=== PATIENT | female | born 1940 | race Caucasian/White ===

== ENCOUNTER 2017-07-28 19:24 | Inpatient (IN) | payer OTHER ==
[2017-07-28] MEDS ORDERED: Albuterol/Ipratropium NEB.SOL* Albuterol 2.5 MG/Ipratropium 0.5 MG 3 ML INH ONE (20:02)
[2017-07-28] MEDS ORDERED: Naloxone* 0.4 MG/ML 1 ML VIAL IV PUSH ONE (20:07)
[2017-07-28 20:36] LABS: ABS Basophils 0 10^3/ul (0-0.2); ABS Eosinophils 0 10^3/ul (0-0.6); ABS Lymphocytes 0.6 10^3/ul (1.0-4.8); ABS Monocytes 0.6 10^3/ul (0-0.8); ABS Neutrophils 8.9 10^3/ul (1.5-7.7); ABS Nucleated RBC 0.01 10^3/ul; Eosinophil % 0.1 % (0-6); Hematocrit 33 % (35-47); Hemoglobin 11.1 g/dl (12.0-16.0); Lymphocyte % 5.7 % (25-47); Mean Corpuscular HGB Conc 34 g/dl (31-36); Mean Corpuscular Hemoglobin 29 pg (27-31); Mean Corpuscular Volume 87 fL (80-97); Mean Platelet Volume 7 um3 (7.4-10.4); Nucleated Red Blood Cells % 0.1; Platelet Count 247 10^3/ul (150-450); Red Blood Count 3.81 10^6/ul (4.0-5.4); Red Cell Distribution Width 15 % (10.5-15); White Blood Count 10.1 10^3/ul (3.5-10.8)
[2017-07-28 20:50] LABS: INR 1.21 (0.77-1.02)
--- NOTE | 2017-07-28 20:51 | RAD ---
INDICATION: Shortness of breath and altered mental status COMPARISON: Most recent comparison chest x-ray June 12, 2014 TECHNIQUE: Single AP portable view of the chest was obtained. FINDINGS: Image quality is compromised due to the relative inferiority of a portable chest x-ray. The heart and mediastinum exhibit normal size and contour. There are patchy densities overlying the bilateral lower lungs. The costophrenic angles are blunted. Visualized bones are normal for the patient's age. IMPRESSION: Patchy bibasilar densities could be secondary to pulmonary edema or multifocal infiltrate.
[2017-07-28] MEDS ORDERED: NS 0.9% 1000 ML* 2,000 ML IV ONE (20:54)
[2017-07-28 20:57] LABS: EGFR Non-African American 21.9 (>60)
[2017-07-28 21:01] LABS: Monocytes % 3 % (0-13)
[2017-07-28] MEDS ORDERED: Azithromycin IV(*) 500 MG in NS 0.9% 250 ML* 250 ML IVPB ONE (21:58)
[2017-07-28] MEDS ORDERED: cefTRIAXone(*) 1 GM in NS 0.9% 50 ML* 50 ML IVPB ONE (21:58)
[2017-07-28] MEDS ORDERED: Aspirin TAB* 325 MG PO ONE (21:59)
[2017-07-28] MEDS ORDERED: Aspirin TAB* 325 MG ONE (22:00)
[2017-07-28] MEDS ORDERED: Atorvastatin* 80 MG TAB PO ONE (22:05)
[2017-07-28] MEDS ORDERED: predniSONE TAB* 20 MG PO ONE (22:21)
[2017-07-28] MEDS ORDERED: Albuterol/Ipratropium NEB.SOL* Albuterol 2.5 MG/Ipratropium 0.5 MG 3 ML INH PRN (22:32)
--- NOTE | 2017-07-29 02:28 | HP ---
AMENDED REPORT NOW INCLUDES COSIGNER DESIGNATION - ESIGNED BEFORE ADJUSTMENTS HOSPITAL MEDICINE HISTORY AND PHYSICAL: DATE OF ADMISSION: 07/28/17 PRIMARY CARE PHYSICIAN: Not available. ATTENDING PHYSICIAN PROVIDER: Alberto Chaudhari MD * (dictation provided by Aminata Mccormick NP) CHIEF COMPLAINT: A period of aphasia in the setting of recent worsening cough. HISTORY OF PRESENT ILLNESS: Ms. Wilder is a 76-year-old female with a past medical history of COPD, on 4 L nasal cannula in the evening, who was visiting her family from [place]. She drove here on July 19 with her daughter to spend [place] holidays with the family. She reportedly has been doing fine. She denies having any swelling, redness or pain to her calves after this trip. She noted yesterday that she was having a little bit worse of cough than usual; however, her family notes that her cough is often quite moist , loud, and productive. She felt like she may be was coming down with a cold. For this, she has been taking Tylenol PM. Apparently, per the family she has been breaking the caps in half. It was unclear exactly how much Tylenol PM she had today. This evening, she was getting up to get into the bath tub when suddenly she became aphasic and confused. She was described as "not being herself at all." She was uncommunicative. EMS was called immediately. Family noted that the patient was off oxygen for that short period of time while getting into the bathtub, but per the family's report, the patient is often off oxygen and has actually not been required to wear it at all times per her doctor. On arrival to the EMS, the patient continued to be aphasic, but was following all commands. She remained aphasic through the trip here and into arrival on the emergency room. At the time of my examination, she is awake and interacting appropriately. She is verbal with clear speech which is at baseline per her family's report. In the emergency room, Ms. Wilder had a chest x-ray, which showed concern for bilateral lower lobe infiltrates. She had labs which is concerning for a normal white blood cell, but bandemia with bands of 19%. Her ABG shows the respiratory acidosis, pH 7.31, PCO2 of 68. Her lactic acid is normal. Her BUN and creatinine are elevated, but it is unclear what her baseline is. She is saturating while in her home at 4 L. She is little bit tachycardic with her heart rate running in the 100s. Her blood pressure has been as low as 80/42. PAST MEDICAL HISTORY: 1. COPD, on 4 L nasal cannula. 2. History of colon resection for unknown cause. 3. Breast cancer. 4. History of cholecystectomy. MEDICATIONS: As an outpatient are: 1. Tiotropium 1 cap inhaled daily. 2. Letrozole 2.5 mg p.o. daily. 3. Citalopram 20 mg p.o. daily. 4. Albuterol sulfate 1 to 2 puffs inhaled q.4 hours. 5. Fluticasone with salmeterol 500/50 one puff inhaled daily. 6. Fluticasone nasal spray daily. 7. Daliresp 500 mcg p.o. daily. 8. Pravastatin 20 mg p.o. daily. 9. Oxybutynin 5 mg p.o. daily. 10. Omeprazole 20 mg p.o. daily. 11. Gabapentin 300 mg p.o. t.i.d. ALLERGIES: No known drug allergies. FAMILY HISTORY: The patient reports her mother and father of old age. SOCIAL HISTORY: The patient quit smoking about 10 years ago. No reported alcohol or drug use. She is currently staying with her daughter who is the healthcare proxy. REVIEW OF SYSTEMS: A 14-point review of systems was completed with Ms. Wilder and all those not mentioned above were negative. PHYSICAL EXAMINATION GENERAL: Ms. Wilder is sitting in the bed with the family at the bedside. VITALS SIGNS: Temperature 98.6, pulse rate 102, respiratory rate 20, O2 saturation 90% on 4 L nasal cannula. Blood pressure on arrival was 80/42. LUNGS: Diminished in the bases, but clear otherwise. There is no wheezing appreciated today. HEART: S1 and S2. No murmur, rub, or gallop and regular. ABDOMEN: Soft, nontender. Bowel sounds positive x4. EXTREMITIES: No cyanosis or edema. NEURO: She is alert. She is oriented x3. She moves all extremity equally. There is no facial asymmetry or focal weakness. Extraocular movements are intact. The patient has no pronator drift. Sensation is intact. No ataxia in upper or lower extremities. SKIN: Intact. LABORATORY DATA/DIAGNOSTIC STUDIES: Sodium 133, potassium is clumping, and that results are not available. Chloride 95, serum bicarbonate 30. BUN 30, creatinine 2.19, glucose 90, lactic acid 1.8. Troponin is 0.02. WBC 10.1, hemoglobin 11.1, hematocrit 33, and platelet count 247. INR 1.21. Chest x-ray shows "patchy bibasilar densities could be secondary to pulmonary edema or multifocal infiltrate." ASSESSMENT AND PLAN: Ms. Wilder is a 76-year-old female with a past medical history of chronic obstructive pulmonary disease, on 4 L of nasal cannula who is visiting her family from [place]. Yesterday, she began experiencing worsening cough and today she has been taking Tylenol PM with concerns perhaps that she took more than the recommended dose. Today, she was getting up to go to be assisted with the bath by her family when she suddenly became aphasic. The family stated that she was able to follow commands, but unable to speak. Our plans will be for inpatient admission as I expect her length of stay to be greater the 2 days for the followin. Aphasia: Initial concern was that perhaps the patient was hypoxic; however , though she was hypoxic she is often on room air at home. There is also concern that perhaps she had a Benadryl overdose with the excess of Tylenol PM; however, she is alert and oriented now and speaking easily. I do not think that Benadryl overdose will cause a sudden onset of her aphasia that resolved so quickly. Perhaps she was confused because of her acute illness but my concern would be for transient ischemic attack. The patient's CT brain has been ordered. I also plan to continue the stroke workup with MRI brain, telemetry, transthoracic echocardiogram, lipid profile. The patient will also have aspirin now and atorvastatin. 2. Pneumonia. The patient has a worsening cough at home. She presents today after a spell of aphasia with bands of 19%. White count is normal and she is afebrile. The chest x-ray shows concern for infiltrate. Plan to continue treatment with ceftriaxone and azithromycin. She will have oxygen available and titrated as needed. She will have duo nebulizers p.r.n. Though she is not evidencing wheezing tonight in the emergency department, I am concerned this patient with advanced chronic obstructive pulmonary disease will develop chronic obstructive pulmonary disease exacerbation with this pneumonia and therefore I plan to treat with prednisone as well. The patient will also continue on her inhalers. 3. Elevated BUN and creatinine. Patient confirms an elevated BUN and creatinine, but I do not know her baseline. I suspect that she is somewhat dry , plan to treat with IV fluids and recheck all her labs in the morning. 4. Anemia, again unclear baseline. I plan to recheck all her labs in the morning. There is no reported dark tarry stools or any other bleeding. 5. DVT prophylaxis with heparin subcu. 6. Code status is DNR/DNI and a MOLST form will be completed. 7. Gastroesophageal reflux disease, continue omeprazole. 8. Depression, plan to hold citalopram while using azithromycin for her pneumonia. TIME SPENT: Approximately 75 minutes were spent in the admission of this patient, more than half the time spent with the patient at the bedside reviewing the events leading up to this hospitalization, performing physical examination and reviewing my plan of care. AMINATA MCCORMICK, GUS [id number]/[facility] #: [id number] ROSALINA
[2017-07-29] MEDS: NS 0.9% 1000 ML* 1,000 ML IV SCH ×2 (02:41→05:08)
[2017-07-29] MEDS ORDERED: NS 0.9% 1000 ML* 1,000 ML IV ONE ×2 (03:49→05:43)
[2017-07-29] MEDS: Heparin VIAL(*) 5000 UNITS/ML VIAL (FIVE THOUSAND) SUBCUT SCH ×3 (05:14→21:05)
[2017-07-29] MEDS: Mometasone/Formoter 200/5 MDI INH SCH ×2 (07:31→19:38)
[2017-07-29] MEDS: Oxybutynin TAB* 5 MG PO SCH (09:16)
[2017-07-29] MEDS: predniSONE TAB* 20 MG PO SCH (09:16)
[2017-07-29] MEDS: Gabapentin CAP(*) 100 MG PO SCH ×3 (09:16→21:04)
[2017-07-29] MEDS: Omeprazole CAP* 20 MG PO SCH (09:16)
[2017-07-29] MEDS: ROFLUMILAST 500 MCG PO SCH (09:18)
--- NOTE | 2017-07-29 09:19 | RAD ---
INDICATION: Aphasia. Relevant surgical history includes surgery to the mastoid bones. COMPARISON: None. TECHNIQUE: Contiguous axial sections of the brain were obtained from the skull base to the vertex without contrast. FINDINGS: The ventricles, cisterns and sulci are within normal limits. There is mild periventricular and subcortical white matter hypoattenuation most consistent with mild microvascular disease. The conway-white matter differentiation is adequately maintained and there is no sulcal effacement. No significant focal abnormality or mass effect is present. There is no evidence for intracranial hemorrhage. No significant focal osseous abnormality is present. The visualized portion of the paranasal sinuses appear clear. There is evidence of right mastoidectomy. The remaining right mastoid air cells exhibit partial effusion. The left mastoid air cells are well-aerated. IMPRESSION: Chronic appearing and postsurgical changes as described above.
--- NOTE | 2017-07-29 09:25 | PN ---
Subjective Date of Service: 07/29/17 Interval History: Patient seen and examined at bedside. Denies fever, chills, chest discomfort, N/ V/D. Pt reports continues cough and increased shortness of breath. Pt states that at home she is able to ambulate without O2 and shortness of breath. Pt states that she plans on staying in [place] until September and then she will return to [place]. She doesn't have a PCP here in [place]. Tele: Sinus tach, rate 110's. Pt tachy up to 130's with ambulation. Family History: Unchanged from Admission Social History: Unchanged from Admission Past Medical History: Unchanged from Admission Objective Active Medications: Albuterol/Ipratropium (Duoneb (Albuterol 2.5 Mg/Ipratropium 0.5 Mg)) 1 neb INH Q4H PRN Reason: SOB/WHEEZING Atorvastatin Calcium (Lipitor*) 80 mg PO 1700 [facility] Gabapentin (Neurontin Cap(*)) 300 mg PO TID [facility] Heparin Sodium (Porcine) (Heparin Vial(*)) 5,000 units SUBCUT Q8HR [facility] Ceftriaxone Sodium 500 mg/ (Sodium Chloride) 50 mls @ 200 mls/hr IVPB Q24H [facility] Azithromycin 250 mg/ Sodium (Chloride) 250 mls @ 250 mls/hr IVPB Q24H [facility] Sodium Chloride (Ns 0.9% 1000 Ml*) 1,000 mls @ 75 mls/hr IV PER RATE [facility] Mometasone Furoate/Formoterol Fumar (Dulera 200/5 Mdi*) 2 puff INH BID [facility] Omeprazole (Prilosec Cap*) 20 mg PO DAILY@0730 [facility] Oxybutynin Chloride (Ditropan Tab*) 5 mg PO DAILY [facility] Prednisone (Deltasone Tab*) 40 mg PO DAILY [facility] Roflumilast (Daliresp (Nf)) 500 mcg PO DAILY [facility] Vital Signs - 8 hr 07/29/17 07/29/17 07/29/17 03:37 03:48 09:16 Temperature 98.1 F Pulse Rate 111 Respiratory 22 20 Rate Blood Pressure 81/40 92/56 (mmHg) O2 Sat by Pulse 90 Oximetry Oxygen Devices in Use Now: Nasal Cannula - 6L Appearance: NAD, sitting up in chair Ears/Nose/Mouth/Throat: Mucous Membranes Moist Respiratory: Symmetrical Chest Expansion and Respiratory Effort, - - Lung sounds with crackles in the bases and wheezing bilateral Cardiovascular: NL Sounds; No Murmurs; No JVD, RRR - , tachy Abdominal: NL Sounds; No Tenderness; No Distention Extremities: No Edema Skin: No Rash or Ulcers Neurological: Alert and Oriented x 3, NL Muscle Strength and Tone Lines/Tubes/Other Access: Clean, Dry and Intact Peripheral IV - site benign Nutrition: Taking PO's Result Diagrams: 07/29/17 09:01 07/29/17 09:01 Assess/Plan/Problems-Billing Assessment: Ms. Wilder is a 76 yo female with PMH significant for COPD on 4L O2 at baseline and breast CA who presented to the emergency room with complaints of aphasia and cough. - Patient Problems (1) Aphasia Code(s): R47.01 - APHASIA SNOMED Code(s): 14262759 Comment: - Unclear cause at this time, r/o TIA - Brain CT - read pending - MRI and TTE pending - Continue statin and started on ASA (2) PNA (pneumonia) Code(s): J18.9 - PNEUMONIA, UNSPECIFIED ORGANISM SNOMED Code(s): 677481367 Comment: - Mild leukocytosis this AM and afebrile - Chest xray with concer for infiltrate - Bands 19% on admission - Continue ceftriaxone and azithromycin (3) COPD (chronic obstructive pulmonary disease) Code(s): J44.9 - CHRONIC OBSTRUCTIVE PULMONARY DISEASE, UNSPECIFIED SNOMED Code(s): 42117253 Comment: - With mild exacerbation secondary to PNA - Wheezing on exam - Continue Azithromycin, prednisone and inhalers/nebs (4) Chronic respiratory failure with hypoxia Comment: - Acute on chronic, on 6L via NC at this time - On 4 L via NC at home at baseline (5) CKD (chronic kidney disease) Code(s): N18.9 - CHRONIC KIDNEY DISEASE, UNSPECIFIED SNOMED Code(s): 834624407 Comment: - Per Pt she has elevated BUN and creatinine at baseline - Unclear baseline - Will attempt to get baseline labs from PCP on Sunday (6) Anemia Code(s): D64.9 - ANEMIA, UNSPECIFIED SNOMED Code(s): 734183999 Comment: - Per Pt anemia at baseline - Unclear baseline - Denies signs of bleeding or dark tarry stools (7) GERD (gastroesophageal reflux disease) Code(s): K21.9 - GASTRO-ESOPHAGEAL REFLUX DISEASE WITHOUT ESOPHAGITIS SNOMED Code(s): 110135565 Comment: - Continue omperazole (8) Depression Code(s): F32.9 - MAJOR DEPRESSIVE DISORDER, SINGLE EPISODE, UNSPECIFIED SNOMED Code(s): 55384536 Comment: - Hold citalopram while receiving azithromycin (9) DVT prophylaxis Code(s): CIV7866 - SNOMED Code(s): 600933178 Comment: - SQ heparin (10) DNR (do not resuscitate) Status and Disposition: Inpatient. Discharge to home when medically stable.
[2017-07-29 09:27] LABS: ABS Basophils 0 10^3/ul (0-0.2); ABS Eosinophils 0 10^3/ul (0-0.6); ABS Lymphocytes 0.3 10^3/ul (1.0-4.8); ABS Monocytes 0.5 10^3/ul (0-0.8); ABS Neutrophils 10.9 10^3/ul (1.5-7.7); ABS Nucleated RBC 0.02 10^3/ul; Eosinophil % 0.1 % (0-6); Hematocrit 33 % (35-47); Hemoglobin 10.4 g/dl (12.0-16.0); Lymphocyte % 2.6 % (25-47); Mean Corpuscular HGB Conc 32 g/dl (31-36); Mean Corpuscular Hemoglobin 29 pg (27-31); Mean Corpuscular Volume 90 fL (80-97); Nucleated Red Blood Cells % 0.2; Red Blood Count 3.65 10^6/ul (4.0-5.4); Red Cell Distribution Width 16 % (10.5-15); White Blood Count 11.7 10^3/ul (3.5-10.8)
[2017-07-29] MEDS ORDERED: Furosemide IV* 10 MG/ML 2 ML VIAL (20 MG) IV ONE (09:31)
[2017-07-29] MEDS: guaiFENesin ER TAB 600 MG PO SCH ×2 (10:45→21:05)
[2017-07-29] MEDS: Atorvastatin* 80 MG TAB PO SCH (17:40)
[2017-07-29] MEDS: cefTRIAXone VIAL(*) 500 MG in NS 0.9% 50 ML* 50 ML IVPB SCH (21:03)
[2017-07-29] MEDS: Azithromycin IV(*) 250 MG in NS 0.9% 250 ML* 250 ML IVPB SCH (22:35)
[2017-07-30 02:17] LABS: Urine Appearance Clear; Urine Blood 2+ (Negative); Urine Color Yellow; Urine Ketones Negative (Negative); Urine Protein Negative (Negative); Urine Specific Gravity 1.009 (1.010-1.030); Urine Urobilinogen Negative (Negative)
[2017-07-30 05:36] LABS: ABS Basophils 0 10^3/ul (0-0.2); ABS Eosinophils 0 10^3/ul (0-0.6); ABS Lymphocytes 0.5 10^3/ul (1.0-4.8); ABS Monocytes 0.8 10^3/ul (0-0.8); ABS Neutrophils 10.3 10^3/ul (1.5-7.7); ABS Nucleated RBC 0.01 10^3/ul; Eosinophil % 0 % (0-6); Hematocrit 30 % (35-47); Hemoglobin 9.7 g/dl (12.0-16.0); Lymphocyte % 4.2 % (25-47); Mean Corpuscular HGB Conc 33 g/dl (31-36); Mean Corpuscular Hemoglobin 29 pg (27-31); Mean Corpuscular Volume 88 fL (80-97); Mean Platelet Volume 7 um3 (7.4-10.4); Nucleated Red Blood Cells % 0.1; Platelet Count 251 10^3/ul (150-450); Red Blood Count 3.36 10^6/ul (4.0-5.4); Red Cell Distribution Width 15 % (10.5-15); White Blood Count 11.6 10^3/ul (3.5-10.8)
[2017-07-30] MEDS: Heparin VIAL(*) 5000 UNITS/ML VIAL (FIVE THOUSAND) SUBCUT SCH ×3 (05:48→21:33)
[2017-07-30 05:49] LABS: EGFR Non-African American 23.9 (>60)
[2017-07-30] MEDS: Mometasone/Formoter 200/5 MDI INH SCH ×2 (07:42→21:10)
[2017-07-30] MEDS: Gabapentin CAP(*) 300 MG PO SCH ×3 (08:32→21:32)
[2017-07-30] MEDS: predniSONE TAB* 20 MG PO SCH (08:32)
[2017-07-30] MEDS: guaiFENesin ER TAB 600 MG PO SCH ×2 (08:32→21:33)
[2017-07-30] MEDS: Oxybutynin TAB* 5 MG PO SCH (08:32)
[2017-07-30] MEDS: Omeprazole CAP* 20 MG PO SCH (08:32)
--- NOTE | 2017-07-30 11:30 | ECHO ---
Patient: LASHONDA HOLLIDAY Rec#: [id number] : 1940 Date: 07/30/2017 Age: 76y Height: 160.02 cm / 63.0 in Weight: 74.84 kg / 164.9 lbs Sex: F BSA: 1.78 Room#: 433 Admit Date#: 07/28/2017 Type: Inpatient Referring: Aminata Lock NP Reading: Marie Brown MD Eviscerator: Rebekah Patterson [facility] Transthoracic Echocardiogram Indication: TIA BP: 107/46 HR: 104 Rhythm: Tachycardia Findings History: COPD,colon cancer,breast cancer,sudden asphasia and confusion. Technical Comments: The study quality is good. Completed at 0950. Left Ventricle: The left ventricular chamber size is mildly dilated. Global left ventricular wall motion and contractility are within normal limits. There is normal left ventricular systolic function. The estimated ejection fraction is 55-60%. Abnormal left ventricular diastolic function is observed.Grade II. The left ventricular diastolic filling pattern is consistent with elevated mean left atrial pressure. Left Atrium: The left atrium is mildly dilated. Right Ventricle: The right ventricle is mildly dilated. The right ventricular global systolic function is normal. Right Atrium: The right atrium is mildly dilated. The interatrial septum appears lipomatous. No atrial septal defect is demonstrated by color Doppler. Aortic Valve: The aortic valve is trileaflet. There is no evidence of aortic regurgitation. There is no evidence of aortic stenosis. Mitral Valve: The mitral valve leaflets are mildly thickened. There is mild mitral regurgitation. The mitral regurgitant jet is medially directed. The mitral regurgitant jet is eccentric. There is no evidence of mitral stenosis. Tricuspid Valve: The tricuspid valve leaflets are normal. There is mild tricuspid regurgitation.possible mild-moderate based on subcostal views. The tricuspid regurgitant jet is wall impinging. There is evidence of mild pulmonary hypertension. There is no tricuspid stenosis. Pulmonic Valve: The pulmonic valve appears normal. There is no evidence of pulmonic regurgitation. There is no pulmonic stenosis. Pericardium: A pericardial fat pad is visualized. Aorta: There is mild dilatation of the ascending aorta. The aortic arch is not well visualized. There is no dilation of the aortic root. Pulmonary Artery: The main pulmonary artery appears normal. Venous: The inferior vena cava appears normal in size. There is a greater than 50% respiratory change in the inferior vena cava dimension. Conclusions The left ventricular chamber size is mildly dilated. Global left ventricular wall motion and contractility are within normal limits. The estimated ejection fraction is 55-60%. Abnormal left ventricular diastolic function is observed, grade II. Elevated mean left atrial pressure. The right ventricle is mildly dilated with normal systolic function. Mild bi atrial enlargement. There is mild mitral regurgitation. There is mild tricuspid regurgitation, possible mild-moderate based on subcostal views. There is evidence of mild pulmonary hypertension: 42 mmHg. The interatrial septum appears lipomatous. No atrial septal defect is demonstrated by color Doppler. Mild dilatation of the ascending aorta: 3.8 cm. No prior echo to compare. Consider saline contrast or PATRICIA if clinically indicated to follow up on etiology of neurological symptoms. Measurements Name Value Normal Range RVIDd (AP) 2D 2.7 cm (0.9 - 2.6) RVDdMajor (2D) 2.7 cm (2.2 - 4.4) RAd ISD 4CH 5.4 cm (3.4 - 4.9) RA (A4C)W 3.4 cm (2.9 - 4.6) IVSd (2D) 1 cm (0.6 - 1) LVPWd (2D) 0.9 cm (0.6 - 1) LVIDd (2D) 5.5 cm (3.6 - 5.4) LVIDs (2D) 4.3 cm - LV FS (2D) 21 % (25 - 45) Aortic Annulus 1.5 cm (1.4 - 2.6) Ao root diameter (2D) 2.9 cm (2.1 - 3.5) Ascending Ao 3.8 cm (2.1 - 3.4) LA dimension (AP) 2D 4.1 cm (2.3 - 3.8) LAd ISD 4CH 5.9 cm (2.9 - 5.3) LA ISD 4CH W 3.8 cm (2.5 - 4.5) Name Value Normal Range LA ESV SP 4CH (A/L) 52 ml - LA ESV SP 2CH (A/L) 58 ml - LA ESV BP (A/L) 57 ml - LA ESV BP (A/L) index 32.26 ml/m2 - LA ESV SP 4CH (MOD) 48 ml - LA ESV SP 2CH (MOD) 55 ml - Name Value Normal Range MV E-wave Vmax 1.2 m/sec - MV deceleration time 219 msec - MV A-wave Vmax 1.4 m/sec - MV E:A ratio 0.89 ratio - LV septal e' Vmax 0.06 m/sec - LV lateral e' Vmax 0.07 m/sec - LV E:e' septal ratio 20 ratio - LV E:e' lateral ratio 17.14 ratio - Name Value Normal Range AV Vmax 1.8 m/sec - AV VTI 30.3 cm - AV peak gradient 13.43 mmHg - AV mean gradient 5.67 mmHg - LVOT Vmax 1.3 m/sec - LVOT VTI 24 cm - LVOT peak gradient 7.1 mmHg - LVOT mean gradient 3.69 mmHg - Name Value Normal Range TR Vmax 3.1 m/sec - TR peak gradient 39 mmHg - RAP 3 mmHg - RVSP 42 mmHg - IVC diameter 2 cm - Name Value Normal Range PV Vmax 1.2 m/sec - PV peak gradient 5.78 mmHg -
--- NOTE | 2017-07-30 12:52 | PN ---
Subjective Date of Service: 07/30/17 Interval History: Patient seen and examined at bedside. Denies fever/chills, CP, N/V/D. She still reports some feelings of weakness that comes and goes; endorses cough, pleuritic pain with inspiration and dyspnea w/ exertion. Family History: Unchanged from Admission Social History: Unchanged from Admission Past Medical History: Unchanged from Admission Objective Active Medications: Albuterol/Ipratropium (Duoneb (Albuterol 2.5 Mg/Ipratropium 0.5 Mg)) 1 neb INH Q4H PRN PRN Reason: SOB/WHEEZING Last Admin: 07/29/17 07:41 Dose: 1 neb Atorvastatin Calcium (Lipitor*) 80 mg PO 1700 [facility] Last Admin: 07/29/17 17:40 Dose: 80 mg Gabapentin (Neurontin Cap(*)) 300 mg PO TID [facility] Last Admin: 07/30/17 08:32 Dose: 300 mg Guaifenesin (Mucinex*) 600 mg PO BID [facility] Last Admin: 07/30/17 08:32 Dose: 600 mg Heparin Sodium (Porcine) (Heparin Vial(*)) 5,000 units SUBCUT Q8HR [facility] Last Admin: 07/30/17 05:48 Dose: 5,000 units Ceftriaxone Sodium 500 mg/ (Sodium Chloride) 50 mls @ 200 mls/hr IVPB Q24H [facility] Last Admin: 07/29/17 21:03 Dose: 200 mls/hr Azithromycin 250 mg/ Sodium (Chloride) 250 mls @ 250 mls/hr IVPB Q24H [facility] Last Admin: 07/29/17 22:35 Dose: 250 mls/hr Mometasone Furoate/Formoterol Fumar (Dulera 200/5 Mdi*) 2 puff INH BID [facility] Last Admin: 07/30/17 07:42 Dose: 2 puff Omeprazole (Prilosec Cap*) 20 mg PO DAILY@0730 [facility] Last Admin: 07/30/17 08:32 Dose: 20 mg Oxybutynin Chloride (Ditropan Tab*) 5 mg PO DAILY [facility] Last Admin: 07/30/17 08:32 Dose: 5 mg Prednisone (Deltasone Tab*) 40 mg PO DAILY [facility] Last Admin: 07/30/17 08:32 Dose: 40 mg Roflumilast (Daliresp (Nf)) 500 mcg PO DAILY [facility] Last Admin: 07/29/17 09:18 Dose: Not Given Vital Signs - 8 hr 07/30/17 07/30/17 07/30/17 07:47 07:49 08:32 Temperature 97.3 F Pulse Rate 100 Respiratory 20 18 21 Rate Blood Pressure 140/52 (mmHg) O2 Sat by Pulse 93 93 Oximetry 07/30/17 07/30/17 10:59 11:36 Temperature 98.5 F Pulse Rate 97 Respiratory 20 16 Rate Blood Pressure 124/54 (mmHg) O2 Sat by Pulse 93 Oximetry Oxygen Devices in Use Now: None Appearance: Older female, sitting up, in NAD Eyes: No Scleral Icterus Ears/Nose/Mouth/Throat: Clear Oropharnyx, Mucous Membranes Moist Neck: NL Appearance and Movements; NL JVP Respiratory: Symmetrical Chest Expansion and Respiratory Effort, - - expiratory wheezes Cardiovascular: NL Sounds; No Murmurs; No JVD, RRR Extremities: No Edema Skin: No Rash or Ulcers Neurological: Alert and Oriented x 3, NL Muscle Strength and Tone Lines/Tubes/Other Access: Clean, Dry and Intact Peripheral IV Nutrition: Taking PO's Result Diagrams: 07/30/17 05:08 07/30/17 05:08 Assess/Plan/Problems-Billing Assessment: Ms. Wilder is a 76 yo female with PMH significant for COPD on 4L O2 at baseline and breast CA who presented to the emergency room with complaints of aphasia and cough. - Patient Problems (1) Aphasia Code(s): R47.01 - APHASIA Comment: - Unclear cause at this time, r/o TIA - Brain CT - read pending - MRI and TTE pending - Continue statin and started on ASA (2) PNA (pneumonia) Code(s): J18.9 - PNEUMONIA, UNSPECIFIED ORGANISM Comment: - Mild leukocytosis this AM and afebrile - Chest xray with concern for infiltrate - Bands 19% on admission - Continue ceftriaxone and azithromycin (3) COPD (chronic obstructive pulmonary disease) Code(s): J44.9 - CHRONIC OBSTRUCTIVE PULMONARY DISEASE, UNSPECIFIED Comment: - With mild exacerbation secondary to PNA - Wheezing on exam - Continue Azithromycin, prednisone and inhalers/nebs (4) Chronic respiratory failure with hypoxia Comment: - Acute on chronic, on 6L via NC at this time - On 4 L via NC at home at baseline (5) CKD (chronic kidney disease) Code(s): N18.9 - CHRONIC KIDNEY DISEASE, UNSPECIFIED Comment: - Per Pt she has elevated BUN and creatinine at baseline - Unclear baseline - Will attempt to get baseline labs from PCP on Sunday (6) Anemia Code(s): D64.9 - ANEMIA, UNSPECIFIED Comment: - Per Pt anemia at baseline - Unclear baseline - Denies signs of bleeding or dark tarry stools - Check stool occult (7) GERD (gastroesophageal reflux disease) Code(s): K21.9 - GASTRO-ESOPHAGEAL REFLUX DISEASE WITHOUT ESOPHAGITIS Comment : - Continue omperazole (8) Depression Code(s): F32.9 - MAJOR DEPRESSIVE DISORDER, SINGLE EPISODE, UNSPECIFIED Comment: - Hold citalopram while receiving azithromycin (9) DVT prophylaxis Comment: - SQ heparin (10) DNR (do not resuscitate) Status and Disposition: Inpatient. Discharge to home when medically stable.
[2017-07-30] MEDS: ROFLUMILAST 500 MCG PO SCH ×2 (12:58→16:09)
[2017-07-30] MEDS: Atorvastatin* 80 MG TAB PO SCH (16:09)
[2017-07-30] MEDS: cefTRIAXone VIAL(*) 500 MG in NS 0.9% 50 ML* 50 ML IVPB SCH (21:29)
[2017-07-30] MEDS: Azithromycin IV(*) 250 MG in NS 0.9% 250 ML* 250 ML IVPB SCH (22:12)
[2017-07-31] MEDS: Heparin VIAL(*) 5000 UNITS/ML VIAL (FIVE THOUSAND) SUBCUT SCH ×2 (05:22→13:36)
[2017-07-31 05:57] LABS: ABS Basophils 0 10^3/ul (0-0.2); ABS Eosinophils 0 10^3/ul (0-0.6); ABS Lymphocytes 0.6 10^3/ul (1.0-4.8); ABS Monocytes 0.6 10^3/ul (0-0.8); ABS Neutrophils 9.9 10^3/ul (1.5-7.7); ABS Nucleated RBC 0.02 10^3/ul; Eosinophil % 0 % (0-6); Hematocrit 29 % (35-47); Hemoglobin 9.4 g/dl (12.0-16.0); Lymphocyte % 5.6 % (25-47); Mean Corpuscular HGB Conc 32 g/dl (31-36); Mean Corpuscular Hemoglobin 28 pg (27-31); Mean Corpuscular Volume 88 fL (80-97); Mean Platelet Volume 7 um3 (7.4-10.4); Nucleated Red Blood Cells % 0.2; Platelet Count 261 10^3/ul (150-450); Red Blood Count 3.31 10^6/ul (4.0-5.4); Red Cell Distribution Width 15 % (10.5-15); White Blood Count 11.1 10^3/ul (3.5-10.8)
[2017-07-31] MEDS: guaiFENesin ER TAB 600 MG PO SCH (08:32)
[2017-07-31] MEDS: Oxybutynin TAB* 5 MG PO SCH (08:32)
[2017-07-31] MEDS: predniSONE TAB* 20 MG PO SCH (08:32)
[2017-07-31] MEDS: ROFLUMILAST 500 MCG PO SCH (08:32)
[2017-07-31] MEDS: Omeprazole CAP* 20 MG PO SCH (08:32)
[2017-07-31] MEDS: Gabapentin CAP(*) 300 MG PO SCH ×2 (08:33→13:36)
[2017-07-31] MEDS ORDERED: Ferrous Sulfate TAB* 325 MG PO SCH (09:00)
--- NOTE | 2017-07-31 10:18 | PN ---
Subjective Date of Service: 07/31/17 Family History: Unchanged from Admission Social History: Unchanged from Admission Past Medical History: Unchanged from Admission Objective Active Medications: Albuterol/Ipratropium (Duoneb (Albuterol 2.5 Mg/Ipratropium 0.5 Mg)) 1 neb INH Q4H PRN PRN Reason: SOB/WHEEZING Last Admin: 07/29/17 07:41 Dose: 1 neb Atorvastatin Calcium (Lipitor*) 80 mg PO 1700 [facility] Last Admin: 07/30/17 16:09 Dose: 80 mg Cyanocobalamin (Vitamin B12 Inj *) 1,000 mcg IM MONTHLY [facility] Ferrous Sulfate (Ferrous Sulfate Tab*) 325 mg PO DAILY [facility] Last Admin: 07/31/17 08:32 Dose: 325 mg Gabapentin (Neurontin Cap(*)) 300 mg PO TID [facility] Last Admin: 07/31/17 08:33 Dose: 300 mg Guaifenesin (Mucinex*) 600 mg PO BID [facility] Last Admin: 07/31/17 08:32 Dose: 600 mg Heparin Sodium (Porcine) (Heparin Vial(*)) 5,000 units SUBCUT Q8HR [facility] Last Admin: 07/31/17 05:22 Dose: 5,000 units Ceftriaxone Sodium 500 mg/ (Sodium Chloride) 50 mls @ 200 mls/hr IVPB Q24H [facility] Last Admin: 07/30/17 21:29 Dose: 200 mls/hr Azithromycin 250 mg/ Sodium (Chloride) 250 mls @ 250 mls/hr IVPB Q24H [facility] Last Admin: 07/30/17 22:12 Dose: 250 mls/hr Mometasone Furoate/Formoterol Fumar (Dulera 200/5 Mdi*) 2 puff INH BID [facility] Last Admin: 07/30/17 21:10 Dose: 2 puff Omeprazole (Prilosec Cap*) 20 mg PO DAILY@0730 [facility] Last Admin: 07/31/17 08:32 Dose: 20 mg Oxybutynin Chloride (Ditropan Tab*) 5 mg PO DAILY [facility] Last Admin: 07/31/17 08:32 Dose: 5 mg Prednisone (Deltasone Tab*) 40 mg PO DAILY [facility] Last Admin: 07/31/17 08:32 Dose: 40 mg Roflumilast (Daliresp (Nf)) 500 mcg PO DAILY [facility] Last Admin: 07/31/17 08:32 Dose: 500 mcg Vital Signs - 8 hr 07/31/17 07/31/17 07/31/17 03:48 07:40 07:54 Temperature 98.7 F 98.3 F Pulse Rate 92 75 Respiratory 16 20 20 Rate Blood Pressure 142/55 130/55 (mmHg) O2 Sat by Pulse 94 94 Oximetry 07/31/17 07/31/17 07/31/17 08:33 08:49 08:50 Temperature Pulse Rate 96 Respiratory 20 16 Rate Blood Pressure (mmHg) O2 Sat by Pulse 94 96 Oximetry Oxygen Devices in Use Now: Nasal Cannula Result Diagrams: 07/31/17 05:04 07/30/17 05:08 Microbiology and Other Data: Microbiology 07/30/17 19:12 Stool Occult Blood (FATIMAH) - Final Stool Assess/Plan/Problems-Billing Assessment: Ms. Wilder is a 76 yo female with PMH significant for COPD on 4L O2 at baseline and breast CA who presented to the emergency room with complaints of aphasia and cough. - Patient Problems (1) Aphasia Code(s): R47.01 - APHASIA Comment: - Unclear cause at this time, r/o TIA - Brain CT - read pending - MRI and TTE pending - Continue statin and started on ASA (2) PNA (pneumonia) Code(s): J18.9 - PNEUMONIA, UNSPECIFIED ORGANISM Comment: - Mild leukocytosis this AM and afebrile - Chest xray with concern for infiltrate - Bands 19% on admission - Continue ceftriaxone and azithromycin (3) COPD (chronic obstructive pulmonary disease) Code(s): J44.9 - CHRONIC OBSTRUCTIVE PULMONARY DISEASE, UNSPECIFIED Comment: - With mild exacerbation secondary to PNA - Wheezing on exam - Continue Azithromycin, prednisone and inhalers/nebs (4) Chronic respiratory failure with hypoxia Comment: - Acute on chronic, on 6L via NC at this time - On 4 L via NC at home at baseline (5) CKD (chronic kidney disease) Code(s): N18.9 - CHRONIC KIDNEY DISEASE, UNSPECIFIED Comment: - Per Pt she has elevated BUN and creatinine at baseline - Unclear baseline - Will attempt to get baseline labs from PCP on Sunday (6) Anemia Code(s): D64.9 - ANEMIA, UNSPECIFIED Comment: - Per Pt anemia at baseline - Unclear baseline - Denies signs of bleeding or dark tarry stools - Check stool occult (7) GERD (gastroesophageal reflux disease) Code(s): K21.9 - GASTRO-ESOPHAGEAL REFLUX DISEASE WITHOUT ESOPHAGITIS Comment : - Continue omperazole (8) Depression Code(s): F32.9 - MAJOR DEPRESSIVE DISORDER, SINGLE EPISODE, UNSPECIFIED Comment: - Hold citalopram while receiving azithromycin (9) DVT prophylaxis Comment: - SQ heparin (10) DNR (do not resuscitate) Status and Disposition: Inpatient. Discharge to home when medically stable.
[2017-07-31] MEDS: Mometasone/Formoter 200/5 MDI INH SCH (11:56)
[2017-07-31 15:25] VITALS: BP 155/67
--- NOTE | 2017-07-31 15:59 | RAD ---
Indication: TIA, aphasia, confusion. Comparison: July 28, 2017 CT. Technique: [place] 1.5 Jayashree [id number] with GEM suite. MRI brain without contrast. Report: Diffusion series is negative for acute or subacute ischemia. Susceptibility series is negative for stigmata of hemosiderin deposition to indicate previous hemorrhage. Mild prominence of the cerebral sulci reflecting mild involutional change. Few minimal foci of periventricular and subcortical white matter T2 hyperintensities without mass effect. No intra or extra-axial fluid collection evident. Preserved major intracranial flow-voids. Unremarkable orbital contents. Clear paranasal sinuses. Postsurgical change of RIGHT mastoidectomy with minimal mucosal thickening at the RIGHT mastoid. LEFT mastoid effusions which appear new compared with the July 28, 2017 CT. No suspicious calvarial or skull base lesions evident. Unremarkable scalp. IMPRESSION: 1. No acute abnormality of the brain. 2. Mild involutional change and mild stigmata of probable chronic small vessel ischemic disease. 3. LEFT mastoid effusions which appear new compared with the July 28, 2017 CT. Correlate with clinical assessment for potential LEFT mastoiditis.
[2017-07-31] MEDS: Atorvastatin* 80 MG TAB PO SCH (17:20)
--- NOTE | 2017-07-31 23:20 | EEG ---
ELECTROENCEPHALOGRAPHY: DATE OF STUDY: 07/31/17 - ROOM #433 LOCATION: The patient is an inpatient. REQUESTING PROVIDER: Aminata Lock NP HISTORY: This is a 76-year-old woman who was admitted on 07/28/17 for a period of aphasia associated with a worsening cough. She was described as being confused and uncommunicative. EEG is requested to evaluate for epileptiform abnormalities. MEDICATIONS: 1. Prilosec. 2. Ferrous sulfate. 3. Neurontin. 4. Mucinex. 5. Dulera. 6. Ditropan. 7. Heparin. 8. Roflumilast. 9. Lipitor. 10. Rocephin. 11. Zithromax. 12. DuoNeb. 13. Vitamin B12. REPORT: The waking background showed appropriate organization with clearly defined anterior and posterior voltage and frequency gradients. There was a well-defined posterior dominant rhythm of 8.5 to 9 Hz, which was symmetrical and showed normal reactivity. Anteriorly, there was an expected pattern of lower voltage, irregular, mixed faster frequencies. Photic stimulation and hyperventilation were not performed. Attenuation of the occipital rhythm accompanied drowsiness. The sleep background was appropriately organized with discernable sleep spindles, but there was an excess of delta range activity within the stage II sleep background. The patient was noted to frequently jerk awake and had snoring during sleep. Throughout the recording, there were no epileptiform discharges or focal features. CLINICAL IMPRESSION: This is a mildly abnormal waking and sleep EEG due to the presence of excessive slowing, intermixed within the sleep background. These findings are suggestive of a mild, nonspecific, diffuse encephalopathy. There are no epileptiform abnormalities. [id number]/[facility] #: [id number] [facility]
--- NOTE | 2017-08-01 06:24 | DS ---
DISCHARGE SUMMARY: DATE OF ADMISSION: 07/28/17 DATE OF DISCHARGE: 07/31/17 PROVIDER: Andrew Abad NP. ATTENDING PHYSICIAN: Shelli Bay MD * dictated by Andrew Abad NP). PRIMARY CARE PROVIDER: The patient is from [place], plans to establish local provider. PRIMARY DISCHARGE DIAGNOSES: 1. Suspected transient ischemic attack with aphasia that has now resolved. 2. Pneumonia. 3. Chronic obstructive pulmonary disease with exacerbation. 4. Suspected acute on chronic renal failure. SECONDARY DISCHARGE DIAGNOSES: 1. Chronic obstructive pulmonary disease with chronic hypoxic respiratory failure, on 4 L nasal cannula continuously. 2. History of colon resection. 3. Breast cancer. 4. History of cholecystectomy. 5. Oral thrush. MEDICATIONS AT DISCHARGE: 1. Cyanocobalamin 1000 mcg IM monthly. 2. Ferrous sulfate 325 mg daily. 3. Spiriva 1 capsule inhale daily. 4. Letrozole 2.5 mg daily. 5. Citalopram 20 mg daily. 6. Albuterol sulfate 1 to 2 puffs inhaled q. 4 hours p.r.n. 7. Advair 500/50 one puff inhaled daily. 8. Fluticasone 1 spray nasal daily. 9. Roflumilast 500 mcg daily. 10. Pravastatin 20 mg daily. 11. Oxybutynin 5 mg daily. 12. Omeprazole 20 mg daily. 13. Gabapentin 300 mg t.i.d. 14. Prednisone taper 40 mg x3 days and 30 mg x3 days and 20 mg x3 days and 10 mg x3 days. 15. Guaifenesin 600 mg b.i.d. 16. Nystatin 100,000 units q.i.d. x10 days. 17. Cefdinir 300 mg b.i.d. 18. Aspirin 81 mg daily. 19. Albuterol nebulizer treatments one treatment inhaled q. 4 hours p.r.n. DIAGNOSTIC TESTING DURING THIS ADMISSION: MRI of the brain, impression: 1. No acute abnormality of the brain. 2. Mild involutional change and mild stigmata of probable chronic small vessel ischemic disease. 3. Left mastoid effusions, which appeared new compared with 07/28/17 CT, correlate with clinical assessment for potential left mastoiditis. Transthoracic echocardiogram from 07/28/17, conclusions: The left ventricular chamber size is mildly dilated. Global left ventricular wall motion and contractility within normal limits. The estimated ejection fraction is 55% to 60%. Normal left ventricular diastolic function is observed, grade 2. Elevated mean left atrial pressure. The right ventricle is mildly dilated with normal systolic function. Mild biatrial enlargement. There is mild mitral regurgitation. There is mild tricuspid regurgitation, possible mild to moderate based on subcostal views. There is evidence of mild pulmonary hypertension: 42 mmHg. The interatrial septum appears lipomatous. No atrial septal defect is demonstrated by color Doppler. Mild dilatation of the ascending aorta 3.8 cm. No prior echo to compare. CT of the brain from 07/28/17 , chronic appearing and postsurgical changes. HOSPITAL COURSE OF STAY: For full details, please refer to the H and P provided by Aminata Lock on admission. In summary, this is a 76-year-old female who is visiting her family this winter. She is from [place]. She is a poor historian and does not recall the name of her physician in order for us to obtain records. However, she presented to the hospital, was concerned for a period of aphasia in the setting of recent worsening cough. Apparently, the patient has also taking Tylenol PM but it is unclear how much she had had. Initially it was felt that she was hypoxic; however, there was concern that she probably had overdosed but she perked up relatively quickly in the ER and there was concern that she may have had a transient ischemic attack. The patient had a stroke workup as indicated above. She was started on aspirin and continued on her statin medication. She does carry risk factors which includes former smoker. For this, we have started her on aspirin 81 mg and advised her to follow up with her PCP. In regards to her pneumonia, the patient has had worsening cough. Her chest x- ray showed concern for infiltrate and she was started on antibiotics with good affect. She is back to her baseline oxygen requirements. She was given prednisone with concern for COPD exacerbation in addition to her pneumonia and is doing well with the prednisone; she will be tapered off this over the next 2 weeks. In regards to her other laboratory abnormalities, I suspect some of this is chronic and she does state that she has a history of anemia and renal disease; however, she is unable to again tell me the name of her doctor so that we could obtain records. Her renal function has been made stable here and her creatinine at discharge is 2.03. She is eating and drinking well. I do also note that her H and H did drop slightly from 11 to 9.4. She has been advised to follow up with CBC in the outpatient setting with results to go to her localized PCP once this is established. Prior to discharge, patient complained of oral pain and was noted to have white patches in her mouth that are due to thrush. We have started her on nystatin. All these concerns were reviewed with the patient and her daughter. Plan to set the patient up with an outpatient nebulizer which will be done through [facility] via case management team tomorrow. She will be set up with local PCP as she will be here through September. The patient has been advised to follow up with her PCP unless there is concern for fever, confusion, weakness, or other emergency symptoms that require more urgent intervention. PHYSICAL ASSESSMENT: HEENT: Pupils are equal, round reactive to light. Oral mucosa is moist. Neck is supple. Cardiac: S1, S2. Heart sounds regular rate rhythm. No murmurs, rubs, or gallops. Lungs: Clear to auscultation. Diminished in the bases. No wheezing appreciated today. Abdomen: Soft, nontender, nondistended. Bowel sounds are normoactive. Extremities: No edema or cyanosis noted. Neuro: She is alert, she is oriented x3. Speech is clear. The patient is a poor historian, is somewhat forgetful but responds appropriately. No focal deficits noted. Extraocular movements were intact. No pronator drift is noted. Strength is 5/5 in upper and lower extremities. DIET: Heart healthy diet. ACTIVITY: As tolerated. CONDITION: Improved, stable. DISPOSITION: To home with family. OUTPATIENT FOLLOWUP NEEDS: The patient will need outpatient labs to follow up with with discharge instructions. She will followup with a local PCP until she is able to reach [place]. [facility] will be contacted to arrange for nebulizer delivery here while she is here in [place]. Again she should also followup with her PCP at home for further evaluation and following of TIA. This is only a brief summary of patient's hospital course of stay. For full details, please refer to the full medical record. If you have any further questions or need further assistance please feel free to contact me at . ANDREW ABAD, STOCK PLAN ADMINISTRATOR [id number]/[facility] #: [id number] [place]
[2017-08-01] MEDS ORDERED: Cyanocobalamin INJ * 1,000 MCG/ML VIAL 1 ML VIAL IM SCH (09:00)
--- NOTE | 2017-08-02 10:49 | ED ---
Chato Davalos Abhishek, scribed for Haresh Marina MD on 07/28/17 at 2140 . Neurological HPI - HPI Summary HPI Summary: This patient is a 76 year old F presenting to [facility] accompanied by two females with a chief complaint of slurred speech since 1729. The history was reported by the patients daughter. The patients daughter states that the pt is on oxygen and it was 88 The patient rates the pain 0/10 in severity currently. Symptoms aggravated by nothing. Symptoms alleviated by nothing. Patients daughter and patient report lethargy, and flank pain. Medication reviewed and stated by the patients daughter as night pills. Patient denies SOB. According to the patients family member(s) the oxygen hose was disconnected for an unknown amount of time. No narcotics are taken by the patient. - History of Current Complaint Chief Complaint: EDShortnessOfBreath Stated Complaint: GENERAL ILLNESS Time Seen by Provider: 07/28/17 19:48 Hx Obtained From: Patient Pain Intensity: 0 Pain Scale Used: 0-10 Numeric Character: Impaired Speech - slurred, Lethargy, Other: - flank pain Aggravating: Nothing Alleviating: Nothing Associated Signs and Symptoms: Positive: Impaired Speech - slurred. Negative: Shortness of Breath - Allergy/Home Medications Allergies/Adverse Reactions: Allergies Allergy/AdvReac Type Severity Reaction Status Date / Time No Known Allergies Allergy Verified 06/12/14 19:18 Home Medications: Home Medications Letrozole 2.5 mg PO DAILY 07/28/17 [History Confirmed 07/28/17] Tiotropium CAP.INH* [Spiriva CAP.INH*] 1 cap INH DAILY 07/28/17 [History Confirmed 07/28/17] PMH/Surg Hx/FS Hx/Imm Hx Cardiovascular History: Reports: Hx Hypotension Respiratory History: Reports: Hx Chronic Obstructive Pulmonary Disease (COPD) - Surgical History Surgery Procedure, Year, and Place: mastoid operation ear. choley. bowel obstruction, anastomosis. tumor removed ovary Infectious Disease History: No Infectious Disease History: Denies: Traveled Outside the [place] in Last 30 Days - Family History Known Family History: Positive: Other - hypotension Negative: Hypertension - Social History Occupation: Retired Lives: With Family Alcohol Use: None Hx Substance Use: No Substance Use Type: Reports: None Hx Tobacco Use: Yes Smoking Status (MU): Former Smoker Length of Time of Smoking/Using Tobacco: 56 years Review of Systems Constitutional: Negative Eyes: Negative ENT: Negative Cardiovascular: Negative Negative: Shortness Of Breath Positive: Abdominal Pain - flank pain Genitourinary: Negative Musculoskeletal: Negative Skin: Negative Neurological: Other - lethargy and slurred speech Psychological: Normal All Other Systems Reviewed And Are Negative: Yes Physical Exam - Summary Physical Exam Summary: Constitutional: Well-developed, Well-nourished, Alert. (-) Distressed Skin: Warm, Dry HENT: Normocephalic; Atraumatic, Dry mucous membranes Eyes: Conjunctiva normal Neck: Musculoskeletal ROM normal neck. (-) JVD, (-) Stridor, (-) Tracheal deviation Cardio: Rhythm regular, rate normal, Heart sounds normal; Intact distal pulses; The pedal pulses are 2+ and symmetric. Radial pulses are 2+ and symmetric. (-) Murmur Pulmonary/Chest wall: Wheezing Abd: Soft, (-) Tenderness, (-) Distension, (-) Guarding, (-) Rebound Musculoskeletal: (-) Edema Lymph: (-) Cervical adenopathy Neuro: Alert, Oriented x3 Psych: Mood and affect Normal Triage Information Reviewed: Yes Vital Signs On Initial Exam: Initial Vitals Temp Pulse Resp BP Pulse Ox 98.6 F 102 20 80/42 90 07/28/17 19:34 07/28/17 19:34 07/28/17 19:34 07/28/17 19:34 07/28/17 19:34 Vital Signs Reviewed: Yes Diagnostics - Vital Signs Vital Signs Temp Pulse Resp BP Pulse Ox 07/28/17 20:07 101 90 07/28/17 19:48 90 07/28/17 19:34 98.6 F 102 20 80/42 90 - Laboratory Lab Results: Lab Results 07/28/17 07/28/17 07/28/17 Range/Units 20:20 20:20 20:20 WBC 10.1 (3.5-10.8) 10^3/ul RBC 3.81 L (4.0-5.4) 10^6/ul Hgb 11.1 L (12.0-16.0) g/dl Hct 33 L (35-47) % MCV 87 (80-97) fL MCH 29 (27-31) pg MCHC 34 (31-36) g/dl RDW 15 (10.5-15) % Plt Count 247 (150-450) 10^3/ul MPV 7 L (7.4-10.4) um3 Neut % (Auto) 88.4 H (38-83) % Lymph % (Auto) 5.7 L (25-47) % Clinton % (Auto) 5.5 (1-9) % Eos % (Auto) 0.1 (0-6) % Baso % (Auto) 0.3 (0-2) % Absolute Neuts (auto) 8.9 H (1.5-7.7) 10^3/ul Absolute Lymphs (auto) 0.6 L (1.0-4.8) 10^3/ul Absolute Monos (auto) 0.6 (0-0.8) 10^3/ul Absolute Eos (auto) 0 (0-0.6) 10^3/ul Absolute Basos (auto) 0 (0-0.2) 10^3/ul Absolute Nucleated RBC 0.01 10^3/ul Immature Gran % 26 H (0-9) % Neutrophils % 62 (38-83) % Band Neutrophils % 19 H (0-8) % Lymphocytes % 8 L (25-47) % Reactive Lymphs % 1 (0-6) % Monocytes % 3 (0-13) % Metamyelocytes % 7 H (0-2) % Nucleated RBC % 0.1 Normal RBC Morphology Normal (Normal) INR (Anticoag Therapy) 1.21 H (0.77-1.02) APTT 30.7 (26.0-36.3) seconds VBG pH (7.33-7.43) VBG pCO2 (41-51) mmHg VBG pO2 (35-45) mmHg VBG HCO3 (24-28) mmol/L VBG O2 Saturation (70-80) % VBG Base Excess (0-4) Sodium (133-145) mmol/L Potassium Chloride (101-111) mmol/L Carbon Dioxide (22-32) mmol/L Anion Gap (2-11) mmol/L BUN (6-24) mg/dL Creatinine (0.51-0.95) mg/dL Est GFR ( Amer) (>60) Est GFR (Non-Af Amer) (>60) BUN/Creatinine Ratio (8-20) Glucose (70-100) mg/dL Lactic Acid 1.8 (0.5-2.0) mmol/L Calcium (8.6-10.3) mg/dL Total Bilirubin (0.2-1.0) mg/dL AST ALT (7-52) U/L Alkaline Phosphatase (34-104) U/L Troponin I (<0.04) ng/mL Total Protein (6.4-8.9) g/dL Albumin (3.2-5.2) g/dL Globulin (2-4) g/dL Albumin/Globulin Ratio (1-3) 07/28/17 07/28/17 Range/Units 20:20 20:20 WBC (3.5-10.8) 10^3/ul RBC (4.0-5.4) 10^6/ul Hgb (12.0-16.0) g/dl Hct (35-47) % MCV (80-97) fL MCH (27-31) pg MCHC (31-36) g/dl RDW (10.5-15) % Plt Count (150-450) 10^3/ul MPV (7.4-10.4) um3 Neut % (Auto) (38-83) % Lymph % (Auto) (25-47) % Clinton % (Auto) (1-9) % Eos % (Auto) (0-6) % Baso % (Auto) (0-2) % Absolute Neuts (auto) (1.5-7.7) 10^3/ul Absolute Lymphs (auto) (1.0-4.8) 10^3/ul Absolute Monos (auto) (0-0.8) 10^3/ul Absolute Eos (auto) (0-0.6) 10^3/ul Absolute Basos (auto) (0-0.2) 10^3/ul Absolute Nucleated RBC 10^3/ul Immature Gran % (0-9) % Neutrophils % (38-83) % Band Neutrophils % (0-8) % Lymphocytes % (25-47) % Reactive Lymphs % (0-6) % Monocytes % (0-13) % Metamyelocytes % (0-2) % Nucleated RBC % Normal RBC Morphology (Normal) INR (Anticoag Therapy) (0.77-1.02) APTT (26.0-36.3) seconds VBG pH 7.31 L (7.33-7.43) VBG pCO2 68 H (41-51) mmHg VBG pO2 38 (35-45) mmHg VBG HCO3 29.1 H (24-28) mmol/L VBG O2 Saturation 73.0 (70-80) % VBG Base Excess 6.1 H (0-4) Sodium 133 (133-145) mmol/L Potassium TNP Chloride 95 L (101-111) mmol/L Carbon Dioxide 30 (22-32) mmol/L Anion Gap 8 (2-11) mmol/L BUN 30 H (6-24) mg/dL Creatinine 2.19 H (0.51-0.95) mg/dL Est GFR ( Amer) 28.1 (>60) Est GFR (Non-Af Amer) 21.9 (>60) BUN/Creatinine Ratio 13.7 (8-20) Glucose 90 (70-100) mg/dL Lactic Acid (0.5-2.0) mmol/L Calcium 8.5 L (8.6-10.3) mg/dL Total Bilirubin 0.40 (0.2-1.0) mg/dL AST TNP ALT 9 (7-52) U/L Alkaline Phosphatase 53 (34-104) U/L Troponin I 0.02 (<0.04) ng/mL Total Protein 5.9 L (6.4-8.9) g/dL Albumin 3.3 (3.2-5.2) g/dL Globulin 2.6 (2-4) g/dL Albumin/Globulin Ratio 1.3 (1-3) Result Diagrams: 07/28/17 20:20 07/28/17 22:15 Lab Statement: Any lab studies that have been ordered have been reviewed, and results considered in the medical decision making process. - Radiology Chest X-ray Radiology Interpretation Completed By: Radiologist - CXR reveals, per radiologist, Patchy bibasilar densities could be secondary to pulmonary edema or multifocal infiltrate. ED physician has reviewed this radiology report and agrees. Course/Dx - Course Course Of Treatment: This patient is a 76 year old F presenting to [facility] accompanied by two females with a chief complaint of slurred speech since 1729. The history was reported by the patients daughter. The patients daughter states that the pt is on oxygen and it was 88." Patients daughter and patient report lethargy, and flank pain. Medication reviewed and stated by the patient s daughter as night pills. Patient denies SOB. According to the patients family member(s) the oxygen hose was disconnected for an unknown amount of time. No narcotics are taken by the patient. CXR reveals, per radiologist, Patchy bibasilar densities could be secondary to pulmonary edema or multifocal infiltrate. ED physician has reviewed this radiology report and agrees. We discussed patient care with Dr. Chaudhari and he accepts patient admittance for observation. The DX will altered mental status, medication overdose, pneumonia and hypoxia. - Diagnoses Provider Diagnoses: Pneumonia, Altered mental status, Medication overdose, Hypoxia - Physician Notifications Discussed Care Of Patient With: Alberto Chaudhari - We discussed patient care and he accepts patient for admittance. Instructed by Provider To: Admit As Observation Discharge - Discharge Plan Condition: Stable Disposition: ADMITTED TO [facility] The documentation as recorded by the Chato diaz Abhishek accurately reflects the service I personally performed and the decisions made by , Haresh Marina MD.
== END 2017-07-31 18:45 | disposition home or self-care (01) | DRG 47 ==
LOC: ED 19:24 → MEDTELE 22:34
PROVIDERS: ADMIT Internal Medicine; ATTEND Internal Medicine
DX: G45.9 Transient cerebral ischemic attack, unspecified (principal); J18.9 Pneumonia, unspecified organism; N17.9 Acute kidney failure, unspecified; J96.11 Chronic respiratory failure with hypoxia; B37.0 Candidal stomatitis; I27.20 Pulmonary hypertension, unspecified; Z99.81 Dependence on supplemental oxygen; R47.01 Aphasia; J44.1 Chronic obstructive pulmonary disease with (acute) exacerbation; N18.9 Chronic kidney disease, unspecified; I08.1 Rheumatic disorders of both mitral and tricuspid valves; K21.9 Gastro-esophageal reflux disease without esophagitis; D64.9 Anemia, unspecified; F32.9 Major depressive disorder, single episode, unspecified; Z66 Do not resuscitate; Z85.3 Personal history of malignant neoplasm of breast; Z79.899 Other long term (current) drug therapy; Z87.891 Personal history of nicotine dependence
CPT/HCPCS: 36415; 70450; 70551; 71010; 80048; 80053; 80061; 81003; 81015; 82272; 82803; 83605; 83880; 84484; 85025; 85610; 85730; 87040; 93306; 94640; 94760; 95819; A9270-GY; J0456; J0696; J1644; J1940; J7512

== ENCOUNTER 2017-08-02 11:06 | Emergency (ER) | payer OTHER ==
[2017-08-02 11:28] VITALS: BP 152/75
--- NOTE | 2017-08-02 11:50 | UC ---
UC General HPI - HPI Summary HPI Summary: 76 yo WF c/o increased amount of mouth sores in her mouth, Pt was recently d/c' d from hospital 2 days ago with COPD exacerbation and PNA. Pt was given Nystatin for thrush upon d/c and ceftin, a new abx on her list of medication was added for outpatient tx of abx - History of Current Complaint Chief Complaint: UCAllergicReaction Stated Complaint: WHITE SORES IN MOUTH Time Seen by Provider: 08/02/17 11:35 Hx Obtained From: Patient Onset/Duration: Lasting Days, Still Present Onset Severity: Moderate Current Severity: Moderate - Allergy/Home Medications Allergies/Adverse Reactions: Allergies Allergy/AdvReac Type Severity Reaction Status Date / Time Cefdinir Allergy white Verified 08/02/17 11:25 spots in mouth Home Medications: Home Medications predniSONE TAB* [Deltasone TAB*] 40 mg PO DAILY 08/02/17 [History Confirmed 11/14] PMH/Surg Hx/FS Hx/Imm Hx Respiratory History: Other - COPD Other Respiratory History: COPD Other History Of: Anticoagulant Therapy - Surgical History Surgical History: Yes Surgery Procedure, Year, and Place: mastoid operation ear. choley. bowel obstruction, anastomosis. tumor removed ovary - Family History Known Family History: Positive: Other - hypotension Negative: Hypertension - Social History Alcohol Use: None Substance Use Type: None Smoking Status (MU): Former Smoker Length of Time of Smoking/Using Tobacco: 56 years - Immunization History Most Recent Influenza Vaccination: 03/2017 Most Recent Pneumonia Vaccination: 03/2017 Review of Systems Constitutional: Negative Skin: Negative Eyes: Negative ENT: Other - mouth sores Respiratory: Negative Cardiovascular: Negative Gastrointestinal: Negative Genitourinary: Negative Motor: Negative Neurovascular: Negative Musculoskeletal: Negative Neurological: Negative Psychological: Negative All Other Systems Reviewed And Are Negative: Yes Physical Exam Triage Information Reviewed: Yes Vital Signs: Initial Vital Signs Temp 36.6 C 08/02/17 11:25 Pulse 92 08/02/17 11:25 Resp 16 08/02/17 11:25 BP 152/75 08/02/17 11:25 Pulse Ox 86 08/02/17 11:25 Eye Exam: Normal ENT Exam: Normal ENT: Positive: Other - light brown colored oral ulcers on hard palate and tongue Dental Exam: Normal Neck exam: Normal Neck: Positive: 1 Respiratory Exam: Normal Cardiovascular Exam: Normal Abdominal Exam: Normal Musculoskeletal Exam: Normal Neurological Exam: Normal Psychological Exam: Normal Skin Exam: Normal Course/Dx - Course Course Of Treatment: cefdinir can cause oral ulcers , pt is laready on nystatin for thrush. Will d/c ceftin and start Levaquin 500mg qd x 7 days - Differential Dx - Multi-Symptom Provider Diagnoses: medication reaction Discharge - Discharge Plan Condition: Stable Disposition: HOME Discharge Disposition Comment: DISCONTINUE CEFDINIR AND TAKE NEW ANTIBIOTIC PRESCRIBED Patient Education Materials: Antibiotic Medication Allergy (ED) Referrals: No Primary Care Phys,NOPCP [Primary Care Provider] -
== END 2017-08-02 12:26 | disposition home or self-care (01) ==
LOC: UCEAST 11:06
DX: K13.70 Unspecified lesions of oral mucosa (principal); T36.1X5A Adverse effect of cephalosporins and other beta-lactam antibiotics, initial encounter; Z79.52 Long term (current) use of systemic steroids; J44.9 Chronic obstructive pulmonary disease, unspecified; Z87.891 Personal history of nicotine dependence
CPT/HCPCS: 99212; G0463